=== PATIENT | male | born 2000 | race Caucasian/White ===

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

== ENCOUNTER → 2020-06-03 | Outpatient (CLI) | payer SELFPAY | LOC: M LABSMTC 13:13 | PROVIDERS: ATTEND Pediatrics | DX: Z20.822 Contact with and (suspected) exposure to COVID-19 (principal) ==

== ENCOUNTER 2021-12-17 13:00 | Emergency (ER) | payer OTHER, SELFPAY ==
[~2021-12-17] VITALS: Ht 167.6 cm; Wt 63.7 kg
[2021-12-17] MEDS ORDERED: IBUPROFEN 800 MG TAB PO ONE (13:45)
[2021-12-17] MEDS ORDERED: BOOSTRIX/ADACEL VACCINE (DIPHTH/PERTUSS/ACELL/TETANUS) 0.5ML SYR IM ONE (13:45)
[2021-12-17] MEDS ORDERED: NEOSPORIN OINT 0.9 GM PKT TOP ONE (13:45)
[2021-12-17] MEDS ORDERED: CEPH500C PO (13:49)
[2021-12-17 14:10] VITALS: BP 150/68
== END 2021-12-17 14:12 | disposition home or self-care (01) ==
LOC: M ED 13:00
DX: S61.001A Unspecified open wound of right thumb without damage to nail, initial encounter (principal); W26.0XXA Contact with knife, initial encounter; Y92.89 Other specified places as the place of occurrence of the external cause; Y93.89 Activity, other specified

== ENCOUNTER → 2023-02-07 | Outpatient (CLI) | payer OTHER ==
[~2023-02-07] MED LIST changes: +CEPH500C PO
[2023-02-07 16:09] LABS: BASO # 0.1 10^3/uL (0.0-0.2); EOS # 0.1 10^3/uL (0.0-0.5); EOS % 1.2 % (0.0-3.0); HEMATOCRIT 44.2 % (42.0-52.0); LYMPH # 2.4 10^3/uL (1.5-5.0); LYMPH % 35.3 % (24.0-44.0); MEAN CORPUSCULAR HEMOGLOBIN 28.8 pg (27.0-33.0); MEAN CORPUSCULAR HGB CONC 33.9 g/dl (32.0-36.5); MEAN CORPUSCULAR VOLUME 84.8 fl (80.0-96.0); MONO # 0.6 10^3/uL (0.0-0.8); NEUTROPHILS # 3.6 10^3/uL (1.5-8.5); NEUTROPHILS % 53.2 % (36.0-66.0); PLATELET COUNT, AUTOMATED 253 10^3/uL (150-450); RED BLOOD COUNT 5.21 10^6/uL (4.30-6.10); WHITE BLOOD COUNT 6.8 10^3/uL (4.0-10.0)
[2023-02-07 16:45] LABS: MONO REFLEX EBV VCA IgM NEGATIVE (NEGATIVE)
== END ==
LOC: M PLALAB 12:16
PROVIDERS: ATTEND Family Medicine
DX: R59.9 Enlarged lymph nodes, unspecified (principal); J02.9 Acute pharyngitis, unspecified

== ENCOUNTER → 2023-04-07 | Outpatient (REF) | LOC: M EMP 11:04 | PROVIDERS: ATTEND Family Medicine | DX: Z11.52 Encounter for screening for COVID-19 (principal) ==

== ENCOUNTER → 2023-06-16 | Outpatient (REF) | LOC: M EMP 12:20 | PROVIDERS: ATTEND Family Medicine | DX: Z01.89 Encounter for other specified special examinations (principal) ==

== ENCOUNTER → 2023-06-16 | Outpatient (REF) | LOC: M EMP 11:32 | PROVIDERS: ATTEND Family Medicine | DX: Z11.59 Encounter for screening for other viral diseases (principal) ==

== ENCOUNTER → 2023-12-02 | Outpatient (REF) | LOC: M EMP 12:34 | PROVIDERS: ATTEND Family Medicine | DX: Z11.52 Encounter for screening for COVID-19 (principal) ==

== ENCOUNTER 2024-01-01 15:36 | Emergency (ER) | payer OTHER ==
[~2024-01-01] VITALS: Ht 170.2 cm; Wt 74.1 kg
[2024-01-01 15:37] VITALS: BP 129/68; TEMP 97; O2SAT 97
== END 2024-01-01 19:18 | disposition left against medical advice (07) ==
LOC: M ED 15:36
DX: Z53.21 Procedure and treatment not carried out due to patient leaving prior to being seen by health care provider (principal)

== ENCOUNTER → 2024-01-17 | Outpatient (REF) | LOC: M EMP 13:25 | PROVIDERS: ATTEND Family Medicine | DX: Z11.52 Encounter for screening for COVID-19 (principal) ==

== ENCOUNTER 2024-02-21 20:44 | Emergency (ER) | payer OTHER ==
[~2024-02-21] VITALS: Ht 162.6 cm; Wt 72.2 kg
[2024-02-21] MEDS ORDERED: ACET-861 PO (20:51)
[2024-02-22] MEDS: KETOROLAC 60MG 2ML VIAL IM ONE (00:52)
[2024-02-22] MEDS ORDERED: AMOX875T2 PO (01:16)
[2024-02-22] MEDS: AUGMENTIN 875 MG TAB PO ONE (01:32)
[2024-02-22 01:38] VITALS: BP 128/70; O2SAT 98
[2024-02-22 01:39] VITALS: TEMP 96.9
== END 2024-02-22 01:40 | disposition home or self-care (01) ==
LOC: M ED 20:44
DX: K02.9 Dental caries, unspecified (principal); S02.5XXA Fracture of tooth (traumatic), initial encounter for closed fracture; X58.XXXA Exposure to other specified factors, initial encounter; F17.200 Nicotine dependence, unspecified, uncomplicated; J45.909 Unspecified asthma, uncomplicated; Y99.9 Unspecified external cause status; Y93.89 Activity, other specified
CPT/HCPCS: 96372; 99283; J1885

== ENCOUNTER 2024-03-21 16:55 | Emergency (ER) | payer OTHER ==
[~2024-03-21] VITALS: Ht 167.6 cm; Wt 71.5 kg
[~2024-03-21 16:55] MED LIST changes: +ACET-861 PO; +AMOX875T2 PO
[2024-03-21] MEDS ORDERED: IBUP-1022 PO (18:17)
[2024-03-21 18:19] VITALS: BP 135/82; TEMP 98.9; O2SAT 96
[2024-03-21] MEDS: IBUPROFEN 600MG TAB PO ONE (18:19)
== END 2024-03-21 18:36 | disposition home or self-care (01) ==
LOC: M ED 16:55
DX: T22.112A Burn of first degree of left forearm, initial encounter (principal); X12.XXXA Contact with other hot fluids, initial encounter; Y92.9 Unspecified place or not applicable; Y93.9 Activity, unspecified; Y99.0 Civilian activity done for income or pay

== ENCOUNTER → 2024-07-10 | Outpatient (CLI) | payer OTHER ==
[~2024-07-10] MED LIST changes: +IBUP-1022 PO
== END ==
LOC: M ADAMS 14:51
PROVIDERS: ATTEND Physician Assistant
DX: M25.511 Pain in right shoulder (principal); R07.89 Other chest pain; I44.4 Left anterior fascicular block

== ENCOUNTER → 2024-07-10 | Outpatient (REF) | payer OTHER ==
[2024-07-10 18:09] LABS: BASO # 0.1 10^3/uL (0.0-0.2); BASO % 0.8 % (0.0-1.0); EOS # 0.1 10^3/uL (0.0-0.5); EOS % 1.5 % (0.0-3.0); HEMATOCRIT 46.8 % (42.0-52.0); HEMOGLOBIN 15.4 g/dl (13.5-17.5); LYMPH % 34.8 % (24.0-44.0); MEAN CORPUSCULAR HEMOGLOBIN 27.5 pg (27.0-33.0); MEAN CORPUSCULAR HGB CONC 32.9 g/dl (32.0-36.5); MEAN CORPUSCULAR VOLUME 83.7 fl (80.0-96.0); MONO # 0.8 10^3/uL (0.0-0.8); MONO % 9.3 % (2.0-8.0); NEUTROPHILS # 4.6 10^3/uL (1.5-8.5); NEUTROPHILS % 53.3 % (36.0-66.0); PLATELET COUNT, AUTOMATED 304 10^3/uL (150-450); RED BLOOD COUNT 5.59 10^6/uL (4.30-6.10); WHITE BLOOD COUNT 8.6 10^3/uL (4.0-10.0)
[2024-07-10 18:16] LABS: ALKALINE PHOSPHATASE 106 U/L (40-129); ALT/SGPT 41 U/L (7.0-40); AST/SGOT 23 U/L (<34); BILIRUBIN,TOTAL 0.4 MG/DL (0.3-1.2); BLOOD UREA NITROGEN 13 MG/DL (9-23); CALCIUM LEVEL 9.5 MG/DL (8.5-10.1); CARBON DIOXIDE LEVEL 30 MMOL/L (20-31); CHLORIDE LEVEL 104 MMOL/L (98-107); CREATININE FOR GFR 0.73 MG/DL (0.70-1.30); GLOMERULAR FILTRATION RATE > 60.0 (>60); GLUCOSE, FASTING 90 MG/DL (60-100); MAGNESIUM LEVEL 2.3 MG/DL (1.8-2.4); POTASSIUM SERUM 4.4 MMOL/L (3.5-5.1); SODIUM LEVEL 142 MMOL/L (136-145); TOTAL PROTEIN 7.9 G/DL (5.7-8.2)
[2024-07-10 18:18] LABS: FREE T4 1.18 NG/DL (0.89-1.76); THYROID STIMULATING HORMONE 1.961 uIU/ML (0.55-4.78)
== END ==
LOC: M SFHCADAM 14:36
PROVIDERS: ATTEND Physician Assistant
DX: M25.511 Pain in right shoulder (principal); J45.40 Moderate persistent asthma, uncomplicated; R07.89 Other chest pain; K04.7 Periapical abscess without sinus; I44.4 Left anterior fascicular block

== ENCOUNTER → 2025-04-18 | Outpatient (REF) | payer OTHER ==
[~2025-04-18] MED LIST changes: -IBUP-1022 PO; +IBUP600T42 PO
== END ==
LOC: M LAB REF 21:00
PROVIDERS: ATTEND Physician Assistant
DX: J02.9 Acute pharyngitis, unspecified (principal); B34.9 Viral infection, unspecified